=== PATIENT | female | born 2000 | race Caucasian/White ===

== ENCOUNTER 2018-09-14 05:49 | Inpatient (IN) ==
[2018-09-14] MEDS ORDERED: Ondansetron 4 MG/2 ML VIAL IVP PRN (06:01)
[2018-09-14] MEDS ORDERED: miSOPROStol 25 MCG TABLET VG PRN (06:01)
[2018-09-14] MEDS ORDERED: Lidocaine 1% 20 ML MDV INFILT PRN (06:01)
[2018-09-14] MEDS ORDERED: Naloxone 0.4 MG/ML INJ IVP PRN (06:01)
[2018-09-14] MEDS ORDERED: Famotidine 20 MG/2 ML VIAL IVP PRN (06:01)
[2018-09-14] MEDS ORDERED: Metoclopramide 10 MG/2 ML VIAL IVP PRN (06:01)
[2018-09-14] MEDS ORDERED: Ringers Solution, Lactated 1,000 ML IVC SCH (06:15)
[2018-09-14 07:02] LABS: Basophils % 0.1 %; Eosinophils # 0.1 K/mcL (0.0-0.6); Eosinophils % 0.7 %; Hematocrit 37.4 % (35.3-44.9); Hemoglobin 12.4 g/dL (11.5-15.4); Immature Granulocytes % 0.5 % (0-4); Lymphocytes # 2.2 K/mcL (0.6-4.6); Lymphocytes % 14.9 %; Mean Corpuscular HGB Conc 33.2 g/dL (31.6-35.5); Mean Corpuscular Hemoglobin 28.8 pg (28.0-33.3); Mean Corpuscular Volume 86.8 fL (83.0-100.0); Monocytes # 0.9 K/mcL (0.0-1.3); Monocytes % 5.8 %; Neutrophils # 11.6 K/mcL (1.6-8.9); Platelet Count 406 K/mcL (140-400); Red Blood Count 4.31 M/mcL (3.82-4.97); Red Cell Distribution Width 13.6 % (11.5-14.5); White Blood Count 14.9 K/mcL (4.3-11.1)
[2018-09-14 07:28] LABS: Barbiturate Screen,Urine Negative ng/mL (Cutoff=200)
[2018-09-14 07:29] LABS: Amphetamine Screen,Urine Negative ng/mL (Cutoff=1000); Benzodiazepines Screen,Urine Negative ng/mL (Cutoff=300); Cannabinoid Screen,Urine Negative ng/mL (Cutoff = 50); Cocaine Screen,Urine Negative ng/mL (Cutoff= 300); Opiate Screen,Urine Negative ng/mL (Cutoff=300); Phencyclidine Screen,Urine Negative ng/mL (Cutoff=25)
--- NOTE | 2018-09-14 07:55 | OB/GYN History & Physical ---
Date of Encounter: 09/14/18 Time of Encounter: 07:51 Assessment and Plan (1) and not yet delivered in third trimester Current visit: Yes Status: Acute (2) 39 weeks gestation of Current visit: Yes Status: Acute (3) Elective induction of labor planned Current visit: Yes Status: Acute She will be induced with a Holder catheter and Cytotec plan is to anticipate vaginal deliver (4) Placental abnormality in third trimester Current visit: Yes Status: Acute History of Present Illness HPI: Ms. Lynch is a 18 year old female 2 para 0010 at 39-4/7 weeks who presented for an induction of labor secondary to term . Patient's recently had an ultrasound on the of last month baby was 3599 g which was the 80 percentile with an EMILY of 17 cm. Patient has been getting weekly NSTs due to placental abnormality. Patient has large placental [place] but has not affected the of the baby. Patient was also diagnosed with Cavum Vergae by MFM and will let the peds know. Patient has not had any contractions having good movement no leaking of fluid. Denies any vaginal discharge at this time. Patient is O+, rubella positive, Varicella postive, GBS negative. Past Med Surg Social Fam HX - Past Medical History Source: patient, old records reviewed Medical history: no medical history Psychiatric history: no psych history - Past Surgical History Surgical History: no surgical history - Social History Smoking Status: Current every day smoker Packs per day: 1/2 Smokeless Tobacco Status: No Alcohol use: none Drug use: marijuana Occupational status: unemployed Current living situation: Home - Independent Activity Level: Independent ambulation Recent Out of Country Travel Within the Last 8 Weeks: No Exposure or Possible Exposure to Illness During Travel: No - Family History Mother Hx Family Cardiac Disorders: No Hx Family Respiratory Disorders: No Hx Family Cancer: No Hx Family GI Disorders: No Hx Family Genitourinary Disorders: No Hx Family Endocrine Disorder: No Hx Family Musculoskeletal Disorders: No Hx Family Neuromuscular Disorders: No Hx Family Neurologic Disorders: No Hx Family HEENT Disorders: No Hx Family Autoimmune Disorders: No Hx Family Reproductive Disorders: No Hx Family Psychosocial Disorders: No Hx Family Medical Disorders: No - Additional Family History Additional family history: Family history noncontributory Obstetrical History - Pregnancies : 2 Para: 0 Term: 0 : 0 Ab's: 1 Livin Medications and Allergies Tablet 1 tab PO DAILY 09/14/18 [History] Allergy/AdvReac Type Severity Reaction Status Date / Time No Known Allergies Allergy Verified 09/14/18 06:29 Review of System OB All systems PM: reviewed and no additional remarkable complaints except as sta bharat Exam - Constitutional Constitutional: well developed, well nourished, no acute distress, obese - HEENT HEENT: EOMI, PERRL, Mucus Membranes Moist - Neck Neck exam: full ROM - Lungs Respiratory exam: CTAB - Cardiovascular Cardiovascular exam: RRR - Breasts Breast: bilateral: normal - Abdomen Abdomen: Present: bowel sounds normal, gravid ( heart tones 140s reactive contractions irregular every 2-3 minutes) - Cervix Dilation: 2 Effacement: 80 Station: -3 (Holder catheter placed 40 mL balloon inflated 25 g Cytotec placed vaginally) Results Result Diagrams: 09/14/18 06:30 Abnormal lab results WBC 14.9 K/mcL (4.3-11.1) H 09/14/18 06:30 Plt Count 406 K/mcL (140-400) H 09/14/18 06:30 Neutrophils # 11.6 K/mcL (1.6-8.9) H 09/14/18 06:30 All other labs normal. - VTE Reasons for not Prescribing Prophylaxis: Treatment not Indicated - Low risk for VTE
[2018-09-14] MEDS: *HR* Nalbuphine 10 MG/ML AMPUL IVP PRN ×2 (08:28→15:34)
[2018-09-14] MEDS ORDERED: Oxytocin 20 units/ LR 1000 mL 20 UNIT/1,000 ML BAG IVC SCH (13:45)
--- NOTE | 2018-09-14 17:14 | OB Labor Progress Note ---
Date of Encounter: 09/14/18 Time of Encounter: 17:11 Labor Progress Note - Subjective Subjective: Patient states contractions getting more uncomfortable has already received 2 doses of Nubain. Holder catheter is still in place. - Cervix Cervix: 4/80/-3. Holder catheter removed at this time - Heart Tones Heart Tones: heart tones 140s reactive - [place]: Contractions every 2 minutes - Interventions Interventions: We will get patient under epidural once comfortable with artificially ruptured and internalized.
[2018-09-14] MEDS ORDERED: Nicotine 14 MG PATCH.TD24 TD SCH (18:11)
[2018-09-14] MEDS ORDERED: Bupivacaine-MPF 0.25% 10 ML VIAL ONE (18:51)
[2018-09-14] MEDS ORDERED: *HR* FentaNYL (PF) 100 MCG/2 ML VIAL ONE (18:51)
[2018-09-14] MEDS ORDERED: Epidural Premix (fent/bupiv) 110 ML EP ONE (18:52)
--- NOTE | 2018-09-14 19:58 | OB Labor Progress Note ---
Date of Encounter: 09/14/18 Time of Encounter: 19:51 Labor Progress Note - Subjective Subjective: Patient more comfortable after getting an epidural placed. - Cervix Cervix: 5/80/-2 AROM large amount of clear fluid noted - Heart Tones Heart Tones: heart tones 140s reactive, scalp monitor placed - [place]: IUPC placed contractions every 2 min greater than 240 [place] units noted - Interventions Interventions: continue close observation, if does not make change did discuss possible section
--- NOTE | 2018-09-14 21:17 | Anesthesia Evaluation PreOp ---
Date of Encounter: 09/14/18 Time of Encounter: 18:42 - Past History Planned Operation: labor epidural Cardiac History: Denies any Significant Hx Pulmonary History: Smoker (smokes 1/2ppd x 3 yrs.) DIRECTOR OF PATIENT CARE History: Denies Any Significant HX Other Medical History: Denies Any Significant HX Anesthesia History: No Prior Anesthetic Complications (has never had GA.No FHAP.) : Yes Alcohol Use: none Drug use: marijuana Medications and Allergies Tablet 1 tab PO DAILY 09/14/18 [History] Allergy/AdvReac Type Severity Reaction Status Date / Time No Known Allergies Allergy Verified 09/14/18 06:29 - Meds/Allergy Pre-op Review Medications Reviewed: Yes Allergies Reviewed: Yes Beta Blockers on Current Med List: No Anesthesia Results - Labs 09/14/18 06:30 Anesthesia Exam 132/76, 83, 20. FHTs 150s. Height: 5'6" Weight: 106kg NPO (# of Hours): >8 Pain Scale: 6 Pain Scale Used: Numeric (1 - 10) - HEENT Pupil (Motor): Pupils equal Mallampati: II Teeth: Normal Oral Opening: Greater than 3 - DIRECTOR OF PATIENT CARE LOC: Oriented DIRECTOR OF PATIENT CARE Motor: Normal RUE, Normal LUE, Normal RLE, Normal LLE, Normal Face DIRECTOR OF PATIENT CARE Sensory: Normal: RUE, LUE, RLE, LLE, Face - Cardiac Rhythm: Regular - Pulmonary Breath Sounds: bilateral Clear Respiratory Effort: Symmetrical Anesthesia Assess/Plan ASA Score: 2 Level of consciousness: Cooperative, Oriented, Tranquil Monitoring Plan: Standard Monitors
--- NOTE | 2018-09-14 21:38 | Anesthesia Procedures ---
Date of Encounter: 09/14/18 Time of Encounter: 18:55 Procedures: Anesthesia - Epidural/Spinal Patient ID/Chart reviewed: Yes Patient examined: Yes OB Eval: Gestational age: 39 OB Eval: : 2 OB Eval: Hx Para: 1 OB Eval: Dilated at (cm): 4 OB Eval: Contractions: Non-stressed pattern Consent Obtained: Yes Supplemental Oxygen: None/Room Air Site Prep: Aseptic Technique, Sterile prep and drape, 0.5% Chlorhexidine/Alcohol Patient position: upright Local Anesthetic: Lidocaine 1% Amount of Local Anesthetic used: 3 Touhy Needle Gauge: 18 Touhy Needle Depth (cm): 9 Catheter Depth at Skin (cm): 15 Test Dose (1.5% Lido + Epi): Volume given (mls): 3 Test Dose Result: Negative Loading Dose: 0.25% Marcaine (mls): 5 Loading Dose: Fentanyl (mcg): 100 Loading Dose Administered: Thru Catheter Infusion Med: 0.125% Bupivacaine w/ 2 mcg/ml Fentanyl Infusion Rate (mls/hr): [address]: Tegaderm, Tape Interspace Used: L3-L4 Loss of Resistance (MADAY): Yes Blood: No CSF: No Paresthesia: No Vitals + FHT's: Vital Signs Time 1855 1915 1920 1925 BP 132/76 126/76 115/71 125/70 Pulse 82 85 94 93 FHTs 140 140 140 140
[2018-09-14] MEDS ORDERED: Epidural Premix (fent/bupiv) 110 ML EP SCH (21:45)
--- NOTE | 2018-09-15 02:58 | OB Labor Progress Note ---
Date of Encounter: 09/15/18 Time of Encounter: 02:55 Labor Progress Note - Subjective Subjective: Patient still comfortable with epidural has made no cervical change with adequate contractions greater than 240 [place] units for over 6 hours patient is exhausted and we have recommended proceeding on with section. - Cervix Cervix: 5-6/80/-2 caput noted - Heart Tones Heart Tones: heart tones 140s and reactive - [place]: Contractions every 2 minutes adequate - Interventions Interventions: will prep the patient for primary low transverse section
[2018-09-15] MEDS ORDERED: Azithromycin 500 MG in D5% in Water 250 ML IVPB ONE ×2 (03:02→05:00)
[2018-09-15] MEDS ORDERED: Lidocaine/EPI 1:200k 2% PF 20 ML VIAL ONE (03:03)
[2018-09-15] MEDS ORDERED: *HR* Oxytocin 10 UNIT/ML VIAL IM ONE (03:06)
[2018-09-15] MEDS ORDERED: *HR* Morphine Sulfate/PF 10 MG/10 ML AMPUL ONE (03:07)
[2018-09-15] MEDS ORDERED: *HR* HYDROmorphone (PF) 1 MG/ML SYRINGE IVP PRN (03:30)
[2018-09-15] MEDS ORDERED: Acetaminophen IV 1,000 MG/100 ML INFUS..BTL IVPB ONE (03:30)
[2018-09-15] MEDS ORDERED: *HR* OxyCODONE Immed Rel 5 MG TABLET PO PRN (03:30)
--- NOTE | 2018-09-15 04:31 | OB/GYN Procedure Note ---
Section - Date of procedure: 09/15/18 Preop diagnosis: other (Intrauterine at 39 and 4/7 weeks, large for gestational age infant, arrest of descent, cephalopelvic disproportion) Post-op diagnosis: same (With asynclitic presentation) Procedure: primary low transverse Surgeon: Claus Freeman Blood Loss: 500 Was there an funeral home assistant present: Yes Two Way Radio Installer: Bryant Flores Anesthesiologist: Yves Walker Magazine Supervisor: Shannan Glez Anesthesia Type: Epidural section complications: none Disposition: L&D Recovery Room Specimens: Placenta - Infant (s) Infant A Infant Delivery Date: 09/15/18 Infant Delivery Time: 03:36 Presentation: vertex Position: MICHELE Route of delivery: other ( section) Gender: Female Viability: Viable Pounds: 7 Ounces: 9 Gram Weight: 3.42 kg at 1 minute: 8 at 5 minutes: 9 Shoulder Dystocia: not encountered Specimens collected: cord blood Placenta: complete extraction Cord: 3 umbilical vessels - Narrative Narrative: Patient is a 18-year-old 1 para 0 at 39-4/7 weeks who presented for induction of labor segment term with favorable cervix patient has been followed by maternal medicine due to placental leaks noted during ultrasounds growth has been appropriate she has been getting NSTs. The recommendation was when she was in the 39 week range to deliver. Last ultrasound [address] the baby in greater than the 85th percentile for growth. Patient reports labor and delivery Holder catheter was placed along with vaginal Cytotec. We had removed the Holder catheter after approximately 8 hours did not appear to be coming out on its own. We removed the patient was 4 cm. Patient did get an epidural at this point she was artificially ruptured large amounts of clear fluid was encountered and she was 4-5 she was internalized and was noted be roxanne every 2 minutes. We had augmented her with Pitocin prior to this. Patient did not progress past approximately 5-6 cm and the head remained at a -2-3 station. After approximately 6 hours of no cervical change with adequate contractions greater than 240 [place] units patient was exhausted recommended section. Procedure: Patient was taken to the operating room where epidural anesthesia was found be adequate. She states in the dorsal supine position with leftward tilt prepped and draped in usual fashion. Timeout was then obtained. A Pfannenstiel incision was made with the scalpel carried down through the underlying tissue to the fascia was of benefit. Fascia was nicked in midline and extended laterally with the Matthews scissors. The superior and inferior edges of the fascia grasped tented up and dissected off the rectus muscles. Rectus muscles were in midline parietal peritoneum was identified tented up and entered sharply. This is extended superiorly and inferiorly with Metzenbaum scissors. The bladder blade was inserted. Vesicouterine peritoneum was tented up and entered sharply and extended laterally the bladder flap was created digitally the lower uterine segment was incised with a scalpel and extended laterally with digital manipulation. 's head was then brought up to the incision, the shoulders were followed followed by the body cord was clamped and cut infant was handed of f to waiting pediatric team. Cord blood was collected and the placenta was delivered manually due to history of placental likes. Uterus was then exteriorized cleaned of all clots and debris and the lower uterine segment was closed using 0 Vicryl in a running locking stitch by a 2 layer closure. Good hemostasis was noted uterus was returned to the abdomen and gutters were cleaned of all clots and debris then copiously irrigated. The fascia was then closed using a #1 stratafix in a running stitch and the skin was closed using a 4-0 Vicryl in a subcuticular manner. A PRINEO dressing was applied and the patient was taken to the recovery room in stable condition. All needle/sponge counts were correct 3 she did receive preoperative antibiotics.
--- NOTE | 2018-09-15 06:51 | Anesthesia Evaluation Post Op ---
Date of Encounter: 09/15/18 Time of Encounter: 06:45 - Vital Signs Vital Signs: VSS throughout pacu stay. - Lungs Lungs: Clear Ascult./Percussion - Airway Airway: Non-obstructed - Cardiovascular Regular Rate - Mental Status Mental Status: Alert & Oriented, Answers Appropriately - Pain Pain Scale: 4 Pain Scale used: Numeric (1 - 10) - Nausea Vomiting Nausea Vomiting: Not Present - Hydration Hydration: Ice chips, Holder catheter - Discharge PostOp Status: Transfer Patient to floor
[2018-09-15] MEDS ORDERED: Ringers Solution, Lactated 1,000 ML IVC SCH (07:00)
[2018-09-15] MEDS ORDERED: Metoclopramide 10 MG/2 ML VIAL IVP PRN (07:00)
[2018-09-15] MEDS ORDERED: Oxytocin 20 units/ LR 1000 mL 20 UNIT/1,000 ML BAG IVC SCH (07:00)
[2018-09-15] MEDS ORDERED: Ondansetron 4 MG/2 ML VIAL IVP PRN (07:00)
[2018-09-15] MEDS ORDERED: Sennosides 8.6 MG TABLET PO PRN (07:00)
[2018-09-15] MEDS: Ibuprofen 600 MG TABLET PO PRN ×2 (08:32→15:35)
[2018-09-15] MEDS: Prenatal Vit/FA 1 EACH TABLET PO SCH (08:32)
[2018-09-15] MEDS: *HR* OxyCODONE/APAP 5/325 TABLET PO PRN ×2 (08:33→17:21)
[2018-09-15] MEDS: Azithromycin 250 MG TABLET PO SCH (08:33)
[2018-09-15] MEDS: cephALEXin 500 MG CAPSULE PO SCH ×2 (08:33→20:28)
[2018-09-15] MEDS: Simethicone 80 MG TAB.CHEW PO PRN (17:21)
[2018-09-15] MEDS: *HR* OxyCODONE/APAP 10/325 TABLET PO PRN (22:47)
[2018-09-16] MEDS: Ibuprofen 600 MG TABLET PO PRN ×2 (03:49→09:40)
[2018-09-16] MEDS: Simethicone 80 MG TAB.CHEW PO PRN ×2 (03:49→09:40)
[2018-09-16] MEDS: *HR* OxyCODONE/APAP 10/325 TABLET PO PRN (04:50)
[2018-09-16 07:48] LABS: Basophils % 0.3 %; Eosinophils # 0.1 K/mcL (0.0-0.6); Eosinophils % 0.5 %; Hematocrit 32.8 % (35.3-44.9); Immature Granulocytes % 0.6 % (0-4); Lymphocytes # 1.7 K/mcL (0.6-4.6); Mean Corpuscular Hemoglobin 28.5 pg (28.0-33.3); Mean Corpuscular Volume 89.1 fL (83.0-100.0); Mean Platelet Volume 10.1 fL (9.4-12.4); Monocytes % 6.3 %; Neutrophils # 12.6 K/mcL (1.6-8.9); Platelet Count 358 K/mcL (140-400); Red Blood Count 3.68 M/mcL (3.82-4.97); Red Cell Distribution Width 14.1 % (11.5-14.5); Segmented Neutrophils % 81.3 %; White Blood Count 15.5 K/mcL (4.3-11.1)
[2018-09-16 07:56] LABS: Hemoglobin 10.5 g/dL (11.5-15.4)
[2018-09-16 09:06] VITALS: BP 123/70
[2018-09-16] MEDS: Azithromycin 250 MG TABLET PO SCH (09:34)
[2018-09-16] MEDS: cephALEXin 500 MG CAPSULE PO SCH (09:34)
[2018-09-16] MEDS: Prenatal Vit/FA 1 EACH TABLET PO SCH (09:34)
--- NOTE | 2018-09-16 13:10 | Discharge Summary ---
Date of Encounter: 09/16/18 Time of Encounter: 13:08 - Discharge Diagnosis (1) Status post delivery Priority: Primary Status: Acute Comments: POD 1 mom and baby doing well, meeting post-op day one milestones. expressed desire for D/C home today. continue pain management as outpt with Ibuprofen, Acetaminophen and Oxycodone (2) Acute blood loss anemia Priority: Secondary Status: Acute Comments: Continue iron supplementation as an outpatient (3) Cigarette smoker motivated to quit Priority: Secondary Status: Acute Comments: pt desires rx for nicotine patches as outpt. will provide. (4) Breast feeding status of mother Priority: Secondary Status: Acute Comments: pt has breast pump at home support PRN - Discharge Medications Prescriptions: New Acetaminophen [8 Hour] 650 mg PO Q6HR PRN 10 Days #40 tablet.er PRN Reason: Pain Docusate [Colace] 100 mg PO BID PRN 10 Days #20 capsule PRN Reason: Constipation Simethicone [Gas-X] 80 mg PO TID PRN 7 Days #21 tab.chew PRN Reason: Dyspepsia cephALEXin [Keflex] 500 mg PO BID 6 Days #12 capsule Ibuprofen [Motrin] 600 mg PO Q6HR PRN 10 Days #40 tablet PRN Reason: Cramping Oxycodone HCl 5 mg PO Q6HR PRN 7 Days #28 tablet PRN Reason: Pain Ferrous Sulfate [Slow Release Iron] 250 mg PO QDPC 90 Days #90 tablet.er Azithromycin [Zithromax] 500 mg PO DAILY #6 tablet Ondansetron ODT [Zofran ODT] 4 mg SL Q6HR PRN #12 tab.rapdis PRN Reason: Nausea Nicotine Patch [Nicoderm] 21 mg TD DAILY 30 Days #30 patch.[email or web address] No Action Tablet 1 tab PO DAILY Home Medications: Tablet 1 tab PO DAILY 09/14/18 [History] Acetaminophen [8 Hour] 650 mg PO Q6HR PRN 10 Days #40 tablet.er 09/16/18 [Rx] Azithromycin [Zithromax] 500 mg PO DAILY #6 tablet 09/16/18 [Rx] Docusate [Colace] 100 mg PO BID PRN 10 Days #20 capsule 09/16/18 [Rx] Ferrous Sulfate [Slow Release Iron] 250 mg PO QDPC 90 Days #90 tablet.er 09/16/18 [Rx] Ibuprofen [Motrin] 600 mg PO Q6HR PRN 10 Days #40 tablet 09/16/18 [Rx] Nicotine Patch [Nicoderm] 21 mg TD DAILY 30 Days #30 patch.td24 09/16/18 [Rx] Ondansetron ODT [Zofran ODT] 4 mg SL Q6HR PRN #12 tab.rapdis 09/16/18 [Rx] Oxycodone HCl 5 mg PO Q6HR PRN 7 Days #28 tablet 09/16/18 [Rx] Simethicone [Gas-X] 80 mg PO TID PRN 7 Days #21 tab.chew 09/16/18 [Rx] cephALEXin [Keflex] 500 mg PO BID 6 Days #12 capsule 09/16/18 [Rx] Allergies/Adverse Reactions: Allergy/AdvReac Type Severity Reaction Status Date / Time No Known Allergies Allergy Verified 09/14/18 06:29 Data Procedures and tests throughout hospitalization: Laboratory Tests 09/14/18 09/14/18 09/16/18 06:30 06:30 07:03 WBC 14.9 H 15.5 H RBC 4.31 3.68 L Hgb 12.4 10.5 L D Hct 37.4 32.8 L MCV 86.8 89.1 MCH 28.8 28.5 MCHC 33.2 32.0 RDW 13.6 14.1 Plt Count 406 H 358 MPV 10.0 10.1 Immature Gran % 0.5 0.6 Seg Neutrophils % 78.0 81.3 Lymphocytes % 14.9 11.0 Monocytes % 5.8 6.3 Eosinophils % 0.7 0.5 Basophils % 0.1 0.3 Neutrophils # 11.6 H 12.6 H Lymphocytes # 2.2 1.7 Monocytes # 0.9 1.0 Eosinophils # 0.1 0.1 Basophils # 0.0 0.0 Urine Opiates Screen Negative Ur Buprenorphine Scrn Negative Ur Barbiturates Screen Negative Ur Phencyclidine Scrn Negative Ur Amphetamines Screen Negative U Benzodiazepines Scrn Negative Urine Cocaine Screen Negative U Marijuana (THC) Screen Negative Ur Drug Screen Interp See Below Labs on day of discharge: Labs from last 24 hours 09/16/18 07:03 WBC 15.5 H RBC 3.68 L Hgb 10.5 L D Hct 32.8 L MCV 89.1 MCH 28.5 MCHC 32.0 RDW 14.1 Plt Count 358 MPV 10.1 Immature Gran % 0.6 Seg Neutrophils % 81.3 Lymphocytes % 11.0 Monocytes % 6.3 Eosinophils % 0.5 Basophils % 0.3 Neutrophils # 12.6 H Lymphocytes # 1.7 Monocytes # 1.0 Eosinophils # 0.1 Basophils # 0.0 Date of admission: 09/14/18 05:49 Primary care physician: PCP NONE Discharging clinician: Yecenia Herrera Anticipated date of discharge: 09/16/18 - Patient Status Disposition: Home, Self-Care Condition: Good Functional capacity at discharge: independent ambulation Overall status at discharge: patient is progressing back to baseline - Discharge Instructions Instructions: Anemia (GEN) Follow Up With: NONE,PCP [Primary Care Provider] - Claus Rios DO [Partnered Physician] - Additional Instructions: Follow up in TWO WEEKS for incision check Follow up in FOUR WEEKS for post- appointment Call your OB or go to the ED for any concerning symptoms, including; worsening abdominal pain, severe headache, new visual disturbances, confusion, chest pain, difficulty breathing, Fever, etc. Take the ibuprofen and Tylenol your prescribed for pain control, use the oxy codone prescribed as needed as we discussed in the hospital. Dispose of unused oxycodone. - Diet and Activity Activity: increase activity as tolerated Diet: advance to your usual diet Hospital Course Reason for admission: section, induction of labor, IUP at term Delivery: section Episiotomy: none Laceration: none Other procedures: none complications: none Discharge diagnosis: IUP at term delivered baby: female Hospital course: Ms. Lynch presented as a 18 yo at 39 weeks 4 days for TOLAC. After shared decision making between the patient and Dr Rios, the decision was made to proceed to section due to maternal fatigue and slow progression of labor. post course has been uncomplicated and patient desires to return home today. Section - Date of procedure: 09/15/18 Preop diagnosis: other (Intrauterine at 39 and 4/7 weeks, large for gestational age , arrest of descent, cephalopelvic disproportion) Post-op diagnosis: same (With asynclitic presentation) Procedure: primary low transverse Surgeon: Claus S Rios Quantitated Blood Loss: 500 Was there an retirement assistant present: Yes Marine Oiler: Bryant Flores Anesthesiologist: Yves Walker Ore Crusher: Shannan Glez Anesthesia Type: Epidural section complications: none Disposition: L&D Recovery Room Specimens: Placenta - (s) Infant A Infant Delivery Date: 09/15/18 Infant Delivery Time: 03:36 Presentation: vertex Position: MICHELE Route of delivery: other ( section) Gender: Female Viability: Viable Pounds: 7 Ounces: 9 Gram Weight: 3.42 kg at 1 minute: 8 at 5 minutes: 9 Shoulder Dystocia: not encountered Specimens collected: cord blood Placenta: complete extraction Cord: 3 umbilical vessels - Narrative Narrative: Patient is a 18-year-old 1 para 0 at 39-4/7 weeks who presented for induction of labor segment term with favorable cervix patient has been followed by maternal medicine due to placental leaks noted during ultrasounds growth has been appropriate she has been getting NSTs. The recommendation was when she was in the 39 week range to deliver. Last ultrasound [address] the baby in greater than the 85th percentile for growth. Patient reports labor and delivery Holder catheter was placed along with vaginal Cytotec. We had removed the Holder catheter after approximately 8 hours did not appear to be coming out on its own. We removed the patient was 4 cm. Patient did get an epidural at this point she was artificially ruptured large amounts of clear fluid was encountered and she was 4-5 she was internalized and was noted be roxanne every 2 minutes. We had augmented her with Pitocin prior to this. Patient did not progress past approximately 5-6 cm and the head remained at a -2-3 station. After approximately 6 hours of no cervical change with adequate contractions greater than 240 [place] units patient was exhausted recommended section. Procedure: Patient was taken to the operating room where epidural anesthesia was found be adequate. She states in the dorsal supine position with leftward tilt prepped and draped in usual fashion. Timeout was then obtained. A Pfannenstiel incision was made with the scalpel carried down through the underlying tissue to the fascia was of benefit. Fascia was nicked in midline and extended laterally with the Matthews scissors. The superior and inferior edges of the fascia grasped tented up and dissected off the rectus muscles. Rectus muscles were in midline parietal peritoneum was identified tented up and entered sharply. This is extended superiorly and inferiorly with Metzenbaum scissors. The bladder blade was inserted. Vesicouterine peritoneum was tented up and entered sharply and extended laterally the bladder flap was created digitally the lower uterine segment was incised with a scalpel and extended laterally with digital manipulation. 's head was then brought up to the incision, the shoulders were followed followed by the body cord was clamped and cut was handed off to waiting pediatric team. Cord blood was collected and the placenta was delivered manually due to history of placental likes. Uterus was then exte riorized cleaned of all clots and debris and the lower uterine segment was closed using 0 Vicryl in a running locking stitch by a 2 layer closure. Good hemostasis was noted uterus was returned to the abdomen and gutters were cleaned of all clots and debris then copiously irrigated. The fascia was then closed using a #1 stratafix in a running stitch and the skin was closed using a 4-0 Vicryl in a subcuticular manner. A PRINEO dressing was applied and the patient was taken to the recovery room in stable condition. All needle/sponge counts were correct 3 she did receive preoperative antibiotics Time spent discussing smoking cessation with patient: more than 10 minutes Time Attestation: Total time spent providing and/or coordinating discharge services: Time Spent: Greater than 30 minutes - VTE Reasons for not Prescribing Prophylaxis: Treatment not Indicated - Low risk for VTE Documentation of Mechanical Device: Intermittent pneumatic compression device Exam - Constitutional Vitals: Temp Pulse Resp BP Pulse Ox 98.3 F 102 16 123/70 97 09/16/18 08:00 09/16/18 08:00 09/16/18 08:00 09/16/18 08:00 09/15/18 23:46 General appearance IM: A&O X 3, pleasant, obese, answers questions appropriately - Respiratory Respiratory exam: Present: CTAB. Absent: accessory muscle use, rales, respirato ry distress, rhonchi, stridor, wheezes Additional comments: Wet sounding cough - Cardiovascular Cardiovascular exam IM: Present: RRR, +S1, +S2. Absent: diastolic murmur, systolic murmur - GI/Abdominal GI/Abdominal exam IM: diminished bowel sounds Incision: normal, dry, intact, dressed - Rectal Rectal exam: deferred - External exam: normal external exam Uterine Tone: Firm Uterus Position: 2 Fingers Below Umbilicus - Extremities Exam Extremities exam IM: Present: full ROM, normal capillary refill, normal inspection. Absent: pedal edema - Neurological Exam Neurological exam: alert, CN II-XII intact, oriented X3
== END 2018-09-16 17:15 | disposition home or self-care (01) | DRG 540 ==
LOC: 1NENULAB 05:49 → 1NENUOBS 09-15 06:55
PROVIDERS: ADMIT Obstetrics & Gynecology; ATTEND Obstetrics & Gynecology

== ENCOUNTER 2021-04-16 07:27 | Inpatient (IN) ==
[2021-04-16] MEDS ORDERED: Oxytocin 20 units/ LR 1000 mL 20 UNIT/1,000 ML BAG IVC ONE ×2 (08:02→11:57)
[2021-04-16] MEDS ORDERED: Famotidine 20 MG/2 ML VIAL IVP ONE (08:02)
[2021-04-16] MEDS ORDERED: Metoclopramide 10 MG/2 ML VIAL IVP ONE (08:02)
[2021-04-16] MEDS ORDERED: CeFAZolin 2,000 MG/120 ML BAG IVPB ONE (08:02)
[2021-04-16] MEDS ORDERED: Ringers Solution, Lactated 1,000 ML IVC SCH (08:15)
[2021-04-16 08:41] LABS: Basophils % 0.2 %; Eosinophils # 0.1 K/mcL (0.0-0.6); Eosinophils % 0.7 %; Hematocrit 34.2 % (35.3-44.9); Hemoglobin 11.3 g/dL (11.5-15.4); Immature Granulocytes % 0.4 % (0-4); Lymphocytes # 2.4 K/mcL (0.6-4.6); Lymphocytes % 17.4 %; Mean Corpuscular Hemoglobin 28.8 pg (28.0-33.3); Mean Corpuscular Volume 87.2 fL (83.0-100.0); Mean Platelet Volume 9.5 fL (9.4-12.4); Monocytes % 6.9 %; Neutrophils # 10.4 K/mcL (1.6-8.9); Platelet Count 457 K/mcL (140-400); Red Blood Count 3.92 M/mcL (3.82-4.97); Red Cell Distribution Width 13.2 % (11.5-14.5); Segmented Neutrophils % 74.4 %; White Blood Count 13.9 K/mcL (4.3-11.1)
[2021-04-16 09:21] LABS: Influenza A PCR Negative (Negative); Influenza B PCR Negative (Negative); Resp. Syncytial Virus PCR Negative (Negative); SARS-CoV-2 by PCR (In House) Negative (Negative)
[2021-04-16 09:41] LABS: Amphetamine Screen,Urine Negative ng/mL (Cutoff=1000); Barbiturate Screen,Urine Negative ng/mL (Cutoff=200); Benzodiazepines Screen,Urine Negative ng/mL (Cutoff=200); Cannabinoid Screen,Urine Negative ng/mL (Cutoff = 50); Cocaine Screen,Urine Negative ng/mL (Cutoff= 300); Opiate Screen,Urine Negative ng/mL (Cutoff=300); Phencyclidine Screen,Urine Negative ng/mL (Cutoff=25)
[2021-04-16] MEDS ORDERED: *HR* FentaNYL (PF) 100 MCG/2 ML VIAL ONE (10:30)
[2021-04-16] MEDS ORDERED: Acetaminophen IV 1,000 MG/100 ML BAG IVPB ONE (10:30)
[2021-04-16] MEDS ORDERED: *HR* Morphine Sulfate/PF 10 MG/10 ML AMPUL ONE (10:30)
[2021-04-16] MEDS ORDERED: EPHEDrine 50 MG/ML VIAL ONE (10:30)
[2021-04-16] MEDS ORDERED: Ketorolac 30 MG/ML VIAL ONE (10:45)
[2021-04-16] MEDS ORDERED: Ondansetron 4 MG/2 ML VIAL ONE (10:45)
[2021-04-16] MEDS ORDERED: Lidocaine -MPF 2% 5 ML VIAL ONE (10:45)
[2021-04-16] MEDS ORDERED: Oxytocin 20 units/ LR 1000 mL 20 UNIT/1,000 ML BAG IVC SCH (13:56)
[2021-04-16] MEDS ORDERED: Ondansetron 4 MG/2 ML VIAL IVP PRN (13:56)
[2021-04-16] MEDS ORDERED: Metoclopramide 10 MG/2 ML VIAL IVP PRN (13:56)
[2021-04-16] MEDS ORDERED: *HR* OxyCODONE Immed Rel 5 MG TABLET PO PRN (13:56)
[2021-04-16] MEDS: Ibuprofen 600 MG TABLET PO SCH (19:51)
[2021-04-16] MEDS: Acetaminophen 325 MG TABLET PO SCH (19:52)
[2021-04-17] MEDS: Simethicone 80 MG TAB.CHEW PO PRN ×2 (03:33→08:57)
[2021-04-17] MEDS: Acetaminophen 325 MG TABLET PO SCH (03:33)
[2021-04-17] MEDS: Ibuprofen 600 MG TABLET PO SCH (03:33)
[2021-04-17 04:43] LABS: Basophils % 0.2 %; Eosinophils # 0.1 K/mcL (0.0-0.6); Eosinophils % 0.4 %; Hematocrit 34.5 % (35.3-44.9); Hemoglobin 11.2 g/dL (11.5-15.4); Immature Granulocytes % 0.3 % (0-4); Lymphocytes # 2.6 K/mcL (0.6-4.6); Lymphocytes % 19.3 %; Mean Corpuscular HGB Conc 32.5 g/dL (31.6-35.5); Mean Corpuscular Volume 89.4 fL (83.0-100.0); Mean Platelet Volume 9.6 fL (9.4-12.4); Monocytes # 1.1 K/mcL (0.0-1.3); Monocytes % 8.1 %; Neutrophils # 9.8 K/mcL (1.6-8.9); Platelet Count 454 K/mcL (140-400); Red Blood Count 3.86 M/mcL (3.82-4.97); Red Cell Distribution Width 13.3 % (11.5-14.5); Segmented Neutrophils % 71.7 %; White Blood Count 13.7 K/mcL (4.3-11.1)
[2021-04-17 06:52] VITALS: BP 107/59; PULSE 84; TEMP 97.8; O2SAT 97
[2021-04-17] MEDS ORDERED: Prenatal Vit/FA 1 EACH TABLET PO SCH (09:00)
== END 2021-04-17 13:25 | disposition home or self-care (01) | DRG 540 ==
LOC: 1NENULAB 07:27 → 1NENUOBS 13:55
PROVIDERS: ADMIT Obstetrics & Gynecology; ATTEND Obstetrics & Gynecology